=== PATIENT | male | born 1975 | race Caucasian/White ===

== ENCOUNTER 2016-11-17 20:47 | Emergency (ER) | payer OTHER ==
--- NOTE | 2016-11-17 21:16 | Emergency Department Record ---
History of Present Illness - General Chief complaint: Rectal bleeding Stated complaint: RECTAL PAIN Time Seen by Provider: 11/17/16 21:10 Source: Patient Mode of Arrival: Ambulatory Limitations: No limitations - History of Present Illness Initial comments: 41 yo male presents to ED with a CC of rectal pain for the past 1 days associated with a mild amount of rectal bleeding. Patient reports a history of loose stools at his baseline, however patient reports constipation over the past several weeks. Patient also reports history of HTN and MN last year. MD complaint: Blood on toilet paper Onset/Timin -: Days(s) Radiation: None Quality: Sharp Consistency: Constant Improves with: Other Worsens with: Bowel movement, Movement, Other Associated Symptoms: Other bleeding Treatments Prior to Arrival: None - Related Data Home Medications Medication Instructions Recorded Confirmed Last Taken Albuterol Sulfate [Ventolin Hfa] 1 - 2 puff PO Q4H PRN 10/06/15 10/06/15 Unknown Allopurinol [Allopurinol] 300 mg PO QHS 11/17/16 11/17/16 11/16/16 Aspirin [Aspir-Low] 81 mg PO DAILY 11/17/16 11/17/16 11/17/16 Atorvastatin Calcium [Lipitor] 10 mg PO QHS 11/17/16 11/17/16 11/16/16 Carvedilol [Coreg] 12.5 mg PO BID 11/17/16 11/17/16 11/17/16 Clopidogrel Bisulfate [Plavix] 75 mg PO DAILY 11/17/16 11/17/16 11/17/16 Insulin Aspart [Novolog Flexpen] 11/17/16 Unknown Insulin Detemir [Levemir Flextouch] 11/17/16 Unknown Lisinopril 20 mg PO DAILY 11/17/16 11/17/16 11/17/16 Phentermine HCl [Phentermine HCl] 37.5 mg PO DAILY 11/17/16 11/17/16 11/17/16 Temazepam [Restoril] 30 mg PO QHS 11/17/16 11/17/16 11/16/16 Previous Rx's Medication Instructions Recorded Dibucaine [Nupercainal] 60 gm RC Q6H PRN #60 oint...g. 11/17/16 Hydrocortisone Acetate [Anusol-Hc] 25 mg RC BID PRN #15 supp.rect 11/17/16 Polyethylene Glycol 3350 [Miralax] 17 gm PO DAILY #30 packet 11/17/16 Allergies Allergy/AdvReac Type Severity Reaction Status Date / Time morphine AdvReac VOMITING Verified 11/17/16 21:23 Travel Screening - Travel/Exposure Within Last 30 Days Have you traveled within the last 30 days?: No - Travel/Exposure Within Last Year Have you traveled outside the [place] in the last year?: No - Additonal Travel Details Have you been exposed to anyone with a communicable illness?: No - Travel Symptoms Symptom Screening: None Review of Systems Constitutional: Denies: Chills, Fever, Malaise, Night sweats Eyes: Denies: Eye discharge, Eye pain ENT: Denies: Congestion, Ear pain, Epistaxis Respiratory: Denies: Cough, Dyspnea Cardiovascular: Denies: Chest pain, Dyspnea on exertion Endocrine: Denies: Fatigue, Heat or cold intolerance Gastrointestinal: Reports: Other (rectal pain). Denies: Abdominal pain, Nausea , Vomiting Genitourinary: Denies: Incontinence, Retention Musculoskeletal: Denies: Arthralgia, Back pain, Gout, Joint swelling Skin: Denies: Bruising, Change in color Neurological: Denies: Abnormal gait, Confusion, Headache, Seizure Psychiatric: Denies: Anxiety Hematological/Lymphatic: Denies: Anemia, Blood Clots Past Medical History - SOCIAL HISTORY Smoking Status: Never smoker - RESPIRATORY Hx Respiratory Disorders: Yes Hx Asthma: Yes - CARDIOVASCULAR Hx Cardio Disorders: No - NEURO Hx Neuro Disorders: No - GI Hx GI Disorders: No - Hx Genitourinary Disorders: No - ENDOCRINE Hx Endocrine Disorders: No Hx Diabetes: Yes (new onset) - MUSCULOSKELETAL Hx Musculoskeletal Disorders: Yes Hx Arthritis: Yes Hx Gout: Yes Comment:: psoriatic - PSYCH Hx Psych Problems: No - HEMATOLOGY/ONCOLOGY Hx Hematology/Oncology Disorders: No Family Medical History *Cancer Comment: Aunt-Ovarian Hx Depression: Mother *Depression Comment: bipolar Hx Diabetes: Father, Grandparents Hx Resp Disorders: Mother, Grandparents Physical Exam - General General Appearance: Alert, Oriented x3, Cooperative, No acute distress, Anxious Limitations: No limitations - Head Head exam: Atraumatic, Normocephalic, Normal inspection Head exam detail: negative: Abrasion, Contusion, Allen's sign, General tenderness, Hematoma, Laceration - Eye Eye exam: Normal appearance. negative: Conjunctival injection, Periorbital swelling, Periorbital tenderness, Scleral icterus - ENT Ear exam: negative: Auricular hematoma, Auricular trauma Nasal Exam: negative: Active bleeding, Discharge, Dried blood, Foreign body Mouth exam: negative: Drooling, Laceration, Muffled voice, Tongue elevation - Neck Neck exam: Normal inspection. negative: Meningismus, Tenderness - Respiratory Respiratory exam: Normal lung sounds bilaterally. negative: Rales, Respiratory distress, Rhonchi, Stridor - Cardiovascular Cardiovascular Exam: Regular rate, Normal rhythm, Normal heart sounds - GI/Abdominal GI/Abdominal exam: Soft. negative: Rebound, Rigid, Tenderness - Rectal Rectal exam: Normal rectal tone, Tenderness (TTP with introduction to the rectal area, heme negative on hemocoult examination. No fissures identified on examination) - exam: Deferred - Extremities Extremities exam: Normal inspection. negative: Calf tenderness, Pedal edema, Tenderness - Back Back exam: Denies: CVA tenderness (R), CVA tenderness (L) - Neurological Neurological exam: Alert, Normal gait, Oriented X3 - Psychiatric Psychiatric exam: Normal affect, Normal mood - Skin Skin exam: Normal color. negative: Abrasion Type of lesion: negative: abrasion Course Vital Signs 11/17/16 20:59 Temperature 97.8 F Pulse Rate 91 H Respiratory 16 Rate Blood Pressure 156/111 Pulse Ox 97 - Reevaluation(s) Reevaluation #1: 11/17/16 21:37 Symptoms appear consistent with internal hemorrhoid, will discharge home on Miralax, Anusol suppositories, and Nupercainal for his rectal pain/symptoms. Patient appears stable for discharge at this time. Disposition Disposition: Discharge Clinical Impression: Rectal pain Disposition: Home, Self-Care Condition: (2) Stable Instructions: Hemorrhoids (ED) Additional Instructions: Return to ED if your symptoms worsen or if you have any concerns. Miralax, Anusol, and Sitz bath's twice daily Follow-up with your family doctor in 3-5 days as directed. Prescriptions: Hydrocortisone Acetate [Anusol-Hc] 25 mg RC BID PRN #15 supp.rect PRN Reason: Pain - Moderate (5-7) Polyethylene Glycol 3350 [Miralax] 17 gm PO DAILY #30 packet Dibucaine [Nupercainal] 60 gm RC Q6H PRN #60 oint...g. PRN Reason: Pain - Moderate (5-7) Forms: Patient Portal Access Time of Disposition: 21:35
== END 2016-11-17 21:46 | disposition home or self-care (01) ==
LOC: ER 20:47
DX: K64.8 Other hemorrhoids (principal); I10 Essential (primary) hypertension; I25.2 Old myocardial infarction; E11.9 Type 2 diabetes mellitus without complications; Z79.4 Long term (current) use of insulin
CPT/HCPCS: 99282

== ENCOUNTER 2016-11-17 20:51 | Emergency (ER) | payer OTHER | END 2016-11-17 21:02 | disposition left against medical advice (07) | LOC: ER 20:51 | DX: Z53.20 Procedure and treatment not carried out because of patient's decision for unspecified reasons (principal) ==

== ENCOUNTER 2017-04-01 06:34 | Day surgery (SDC) | payer OTHER ==
[~2017-04-01 06:34] MED LIST: ACETAMINOPHEN 1,000 MG/100 ML BTL IV ONE
[2017-04-01] MEDS ORDERED: HYDROCODONE/APAP 7.5/325MG TABLET PO ONE (11:13)
[2017-04-01] MEDS ORDERED: LIDOCAINE 2% MDV (20MG/ML) 20ML VIAL IV ONE ×2 (11:13→13:38)
[2017-04-01] MEDS ORDERED: *PACU ONLY* KETAMINE HCL 10 MG/ML (20ML) VIAL IV ONE (13:38)
[2017-04-01] MEDS ORDERED: ALFENTANIL HCL 500 MCG/1ML, 2ML AMP IV ONE (13:38)
[2017-04-01] MEDS ORDERED: MIDAZOLAM HCL 2MG/2ML VIAL IV ONE (13:38)
[2017-04-01] MEDS ORDERED: PROPOFOL 10 MG/ML VIAL IV ONE (13:38)
--- NOTE | 2017-04-06 14:33 | Operative Note ---
DATE OF SURGERY: 04/01/2017 Surgeon: Jatin Handy DO PREOPERATIVE DIAGNOSIS: Carpal tunnel syndrome in left wrist. POSTOPERATIVE DIAGNOSIS: Carpal tunnel syndrome in left wrist. OPERATION: Decompression of left median nerve at the wrist using 3.5 loop magnification. DESCRIPTION OF PROCEDURE: This 42-year-old male was taken to the operating room and placed in the supine position on the operating room table. Abrahan block anesthesia was induced. The left upper extremity was then elevated, prepped with Hibiclens, and draped in the usual sterile fashion. A palmar incision was utilized following the hypothenar crease from the level of the base of the webspace of the thumb to the flexor crease of the wrist, and dissection was carried down through the skin and subcutaneous tissue. Hemostasis obtained with the electrocautery. Palmar fascia was divided in line with the skin incision to expose the flexor retinaculum which was punctured and then split through its proximal margin. With the contents of the carpal tunnel under direct vision, the transverse carpal ligament was transected along its ulnar border, and the radial flap was raised to expose the entire median nerve under the transverse carpal ligament. The recurrent motor branch of the median nerve was identified and found to be normal. No gross pathology of the median nerve itself was identified. The wound was then copiously irrigated and the wound closed with interrupted 6-0 nylon suture. Sterile dressings were applied. The tourniquet was released and an AP plaster mold was applied with the wrist in slight dorsiflexion and the thumb in an adducted position. JOY
== END 2017-04-01 09:25 | disposition home or self-care (01) ==
LOC: SUR 06:34
PROVIDERS: ATTEND Orthopaedic Surgery
DX: G56.02 Carpal tunnel syndrome, left upper limb (principal); E11.9 Type 2 diabetes mellitus without complications; Z79.4 Long term (current) use of insulin; I10 Essential (primary) hypertension; M10.9 Gout, unspecified; E78.00 Pure hypercholesterolemia, unspecified

== ENCOUNTER 2017-08-11 07:26 | Day surgery (SDC) | payer OTHER ==
[2017-08-11] MEDS ORDERED: KETOROLAC 30 MG/ML VIAL IVP ONE (07:27)
[2017-08-11] MEDS ORDERED: LIDOCAINE 2% MDV (20MG/ML) 20ML VIAL IV ONE (07:27)
[2017-08-11] MEDS ORDERED: FENTANYL PF 100MCG/2ML VIAL IV ONE (07:27)
[2017-08-11] MEDS ORDERED: PROPOFOL 10 MG/ML VIAL IV ONE (07:27)
[2017-08-11] MEDS ORDERED: HYDROCODONE/APAP 7.5/325MG TABLET PO ONE (07:27)
[2017-08-11] MEDS ORDERED: LIDOCAINE PF 0.5% (5MG/ML) 50ML VIAL IV ONE (07:27)
[2017-08-11] MEDS ORDERED: MIDAZOLAM HCL 2MG/2ML VIAL IV ONE (07:27)
--- NOTE | 2017-08-12 12:30 | Operative Note ---
DATE OF SURGERY: 08/11/2017 SURGEON: Jatin Handy DO PREOPERATIVE DIAGNOSIS: Carpal tunnel syndrome of the right wrist. POSTOPERATIVE DIAGNOSIS: Carpal tunnel syndrome of the right wrist. OPERATIVE PROCEDURE: Decompression, right median nerve at the wrist using 3.5 loop magnification. DESCRIPTION: This 42-year-old male was taken to the operating room and placed in the supine position on the operating room table. A Abrahan block anesthesia was utilized, and the right upper extremity was then prepped with Hibiclens and draped in the usual sterile fashion. A palmar incision was utilized following the hypothenar crease and the level of the base of the webspace of the thumb, the flexor crease of the wrist. Dissection carried down through the skin and subcutaneous tissue. Hemostasis obtained with the electrocautery. The palmar fascia was divided in line with the skin incision to expose the flexor retinaculum. This was then punctured and split to its proximal margin, and then with the contents of the carpal tunnel under direct vision, the transverse carpal ligament was transected along its ulnar border and the radial flap was raised to exposed the entire median nerve under the transverse carpal ligament. Thickening of the tenosynovium was present, and this was divided, but epineurotomy was not performed. The recurrent motor branch of the median nerve was identified and found to be intact. Marked hyperemia of the nerve and moderate hourglass deformity of the nerve also identified under the transverse carpal ligament. The wound was irrigated with lactated Ringer's solution and hemostasis obtained with the electrocautery. The wound closed with interrupted 6-O nylon sutures. Sterile dressings with a plaster splint immobilization was applied. Tourniquet was released and the patient taken to the recovery room in satisfactory condition. GROSS PATHOLOGY: This patient had marked hyperemia and hourglass deformity, thickening of the tenosynovium also being identified. [facility]
== END 2017-08-11 09:20 | disposition home or self-care (01) ==
LOC: SUR 07:26
PROVIDERS: ATTEND Orthopaedic Surgery
DX: G56.01 Carpal tunnel syndrome, right upper limb (principal); E78.00 Pure hypercholesterolemia, unspecified; I10 Essential (primary) hypertension; E11.9 Type 2 diabetes mellitus without complications; Z79.4 Long term (current) use of insulin; Z79.84 Long term (current) use of oral hypoglycemic drugs; Z79.01 Long term (current) use of anticoagulants; J45.909 Unspecified asthma, uncomplicated; I25.10 Atherosclerotic heart disease of native coronary artery without angina pectoris; E78.5 Hyperlipidemia, unspecified
CPT/HCPCS: J1885; J3490